=== PATIENT | male | born 1935 | race Caucasian/White ===

== ENCOUNTER 2017-12-06 16:33 | Inpatient (IN) | payer OTHER ==
[2017-12-06 17:24] LABS: BASOPHILS % (AUTO) 0.2 %; LYMPHOCYTES # (AUTO) 0.4 10^3/uL (1.5-3.5); MEAN CORPUSCULAR HEMOGLOBIN 30.2 pg (27.0-31.0); MEAN CORPUSCULAR HGB CONC 33.4 g/dL (32.0-36.0); MEAN CORPUSCULAR VOLUME 90.6 fL (80.0-94.0); MEAN PLATELET VOLUME 7.5 fL (7.4-11.4); MONOCYTES # (AUTO) 0.5 10^3/uL (0.0-1.0); MONOCYTES % (AUTO) 7.2 %; NEUTROPHILS # (AUTO) 6.3 10^3/uL (1.5-6.6); NEUTROPHILS % (AUTO) 87.6 %; PLT - PLATELET COUNT 128 10^3/uL (130-450); RED CELL DISTRIBUTION WIDTH 17.1 % (12.0-15.0); WHITE BLOOD COUNT 7.2 x10^3/uL (4.8-10.8)
[2017-12-06 17:31] LABS: ALBUMIN 4.3 g/dL (3.2-5.5); ALBUMIN/GLOBULIN RATIO 1.5 (1.0-2.2); ALKALINE PHOSPHATASE 96 IU/L (42-121); ALT ALANINE AMINOTRANSFERASE 167 IU/L (10-60); AST ASPARTATE AMINOTRANSFERASE 207 IU/L (10-42); BILIRUBIN,TOTAL 3.8 mg/dL (0.2-1.0); BUN - BLOOD UREA NITROGEN 15 mg/dL (6-20); CALCIUM 8.8 mg/dL (8.5-10.3); CARBON DIOXIDE - CO2 25 mmol/L (21-32); CHLORIDE 102 mmol/L (101-111); CREATININE 0.8 mg/dL (0.6-1.2); GFR - MDRD 93 (>89); GLUCOSE 123 mg/dL (70-100); LIPASE 20 U/L (22-51); SODIUM 134 mmol/L (135-145); TOTAL PROTEIN 7.1 g/dL (6.7-8.2)
--- NOTE | 2017-12-06 17:36 | ED Physician Documentation ---
PD HPI ABD PAIN - Stated complaint Stated Complaint: N/V - Chief complaint Chief Complaint: Abd Pain - History obtained from History obtained from: Patient - History of Present Illness Timing - onset: Other (This is an 82-year-old gentleman with history of atrial fibrillation on warfarin derivative. He is visiting from [place]. In May of last year he had choledocholithiasis it sounds like with an ERCP and had a repeat procedure in August. Last night he started developed fevers and chills and nausea but there is no abdominal pain.) Review of Systems Ten Systems: 10 systems reviewed and negative Constitutional: reports: Fever, Chills. denies: Sweats Cardiac: denies: Chest pain / pressure, Palpitations Respiratory: denies: Dyspnea, Cough GI: reports: Nausea. denies: Abdominal Pain, Vomiting, Diarrhea PD PAST MEDICAL HISTORY - Past Medical History Past Medical History: Yes Cardiovascular: Atrial fibrillation - Present Medications Home Medications: Ambulatory Orders Medication Instructions Recorded Confirmed Metoprolol Succinate [Toprol Xl] 50 mg PO BID 12/06/17 12/06/17 Phenrogamma 3 12/06/17 - Allergies Allergies/Adverse Reactions: Allergies Allergy/AdvReac Type Severity Reaction Status Date / Time No Known Drug Allergies Allergy Verified 12/06/17 16:44 - Living Situation Living Situation: reports: With family - Social History Does the pt smoke?: No Does the pt have substance abuse?: No - Family History Family history: reports: Non contributory PD ED PE NORMAL - Vitals Vital signs reviewed: Yes - General General: Alert and oriented X 3, No acute distress - HEENT HEENT: PERRL, EOMI - Neck Neck: Supple, no meningeal sign, No bony TTP - Cardiac Cardiac: Other (Irregularly irregular, no murmur) - Respiratory Respiratory: No respiratory distress, Clear bilaterally - Abdomen Abdomen: Normal bowel sounds, Soft, Non tender - Derm Derm: Normal color, Warm and dry - Extremities Extremities: No edema, No calf tenderness / cord - Neuro Neuro: Alert and oriented X 3, Normal speech - Psych Psych: Normal mood, Normal affect Results - Vitals Vitals: Vital Signs - 24 hr 12/06/17 12/06/17 16:37 19:07 Temperature 37.7 C H Heart Rate 116 H 110 H Respiratory 22 15 Rate Blood Pressure 124/87 H 110/70 O2 Saturation 97 96 Oxygen O2 Source Room air - Labs Labs: Laboratory Tests 12/06/17 12/06/17 12/06/17 17:08 17:08 17:08 WBC 7.2 RBC 4.30 L Hgb 13.0 L Hct 39.0 L MCV 90.6 MCH 30.2 MCHC 33.4 RDW 17.1 H Plt Count 128 L MPV 7.5 Neut # 6.3 Lymph # 0.4 L [place] # 0.5 Eos # 0.0 Baso # 0.0 Absolute Nucleated RBC 0.00 Nucleated RBC % 0.0 PT INR Sodium 134 L Potassium 4.3 Chloride 102 Carbon Dioxide 25 Anion Gap 7.0 BUN 15 Creatinine 0.8 Estimated GFR (MDRD) 93 Glucose 123 H Lactic Acid 1.2 Calcium 8.8 Total Bilirubin 3.8 H AST 207 H ALT 167 H Alkaline Phosphatase 96 Total Protein 7.1 Albumin 4.3 Globulin 2.8 Albumin/Globulin Ratio 1.5 Lipase 20 L Ethyl Alcohol < 5.0 12/06/17 17:08 WBC RBC Hgb Hct MCV MCH MCHC RDW Plt Count MPV Neut # Lymph # [place] # Eos # Baso # Absolute Nucleated RBC Nucleated RBC % PT 30.0 H INR 2.8 H Sodium Potassium Chloride Carbon Dioxide Anion Gap BUN Creatinine Estimated GFR (MDRD) Glucose Lactic Acid Calcium Total Bilirubin AST ALT Alkaline Phosphatase Total Protein Albumin Globulin Albumin/Globulin Ratio Lipase Ethyl Alcohol - Rads (name of study) RUQ sono Radiology: EMP read contemporaneously (Nonmobile 3.2 cm gallstone without evidence of cholecystitis, extrahepatic bile duct dilatation no obvious choledocholithiasis.) PD MEDICAL DECISION MAKING - ED course ED course: 82-year-old gentleman with known gallstones presents with nausea and low-grade fevers but no right upper quadrant pain or tenderness. His liver enzymes are up and there is no obvious choledocholithiasis on ultrasound. Case discussed by phone with Dr. Gramajo who feels like he can be safely managed here if we can get an MRCP tomorrow which I did confirm with the customs house broker we can we put him on Unasyn and I spoke with Dr. Gallegos for admission at 8:02 PM. Departure - Departure Disposition: 66 [facility] DC/Xfer Clinical Impression: Adequate anticoagulation on anticoagulant therapy, Ascending cholangitis Condition: Stable Discharge Date/Time: 12/06/17 20:44
[2017-12-06 17:58] LABS: INR 2.8 (0.8-1.2)
[2017-12-06] MEDS ORDERED: AMPICILLIN/SULBACTAM 3 GM in SODIUM CHLORIDE 0.9% MINIBAG 100 ML IV STA (19:03)
--- NOTE | 2017-12-06 19:37 | Ultrasound Report ---
EXAM: ABDOMEN ULTRASOUND LIMITED, RUQ EXAM DATE: 12/06/2017 07:12 PM. CLINICAL HISTORY: Fevers, H/O choledocholithiasis. COMPARISON: None. TECHNIQUE: Real-time scanning was performed with static images obtained. FINDINGS: Liver: Normal in size and echotexture. 16.5 cm. Main portal vein flow: Hepatopetal. Gallbladder: There is a non-mobile 3.2 x 1.5 x 2.4 cm stone with adjacent sludge within the gallbladd er. Biliary System: CBD measures 13 mm. The lower common bile duct is not visualized. Other: None. IMPRESSION: 1. Non-mobile 3.2 cm gallstone. No evidence of acute cholecystitis. 2. Extrahepatic bile duct dilatation. The lower common bile duct is obscured by bowel gas. Clinical c orrelation recommended to exclude cholestasis. YULI Referring Provider Line: [phone] SITE ID: [id number]
--- NOTE | 2017-12-06 19:37 | Ultrasound Preliminary Report ---
Exam: US ABDOMEN LIMITED IMPRESSION: 1. Non-mobile 3.2 cm gallstone. No evidence of acute cholecystitis. 2. Extrahepatic bile duct dilatation. The lower common bile duct is obscured by bowel gas. Clinical c orrelation recommended to exclude cholestasis. [facility] SITE ID: [id number]
[2017-12-06] MEDS ORDERED: ONDANSETRON 4 MG/2 ML VIAL IVP PRN (20:35)
[2017-12-06] MEDS ORDERED: HYDROmorphone 1 MG/ML CARPUJECT IVP PRN (20:35)
[2017-12-06] MEDS: METOPROLOL SUCCINATE 50 MG TABLET PO SCH (22:12)
[2017-12-06] MEDS: PANTOPRAZOLE 40 MG VIAL IVP SCH (22:27)
[2017-12-06] MEDS: D5NS W/20 MEQ KCL 1,000 ML IV SCH (22:27)
[2017-12-07] MEDS ORDERED: AMPICILLIN/SULBACTAM 3 GM in SODIUM CHLORIDE 0.9% MINIBAG 100 ML IV SCH ×2 (03:00→09:27)
--- NOTE | 2017-12-07 03:16 | HISTORY & PHYSICAL EXAMINATION ---
DATE OF SERVICE: 12/06/2017 Physician: Freida Best MD HISTORY OF PRESENT ILLNESS: This is an 82-year-old, white male who lives in [place] and is visiting his daughter on [facility]. He speaks Polish moderately well, and the daughter and other family members are at the bedside for interpretation. The patient has a history of chronic atrial fibrillation for about 10 years, for which he is on metoprolol and the version of Coumadin. He otherwise has a negative past medical history , except for having a gallstone that required an ERCP in the fall of 2016 and then again in August of this year. He has then had improvement in his status and was able to travel from [facility] to the [place] for this visit. He has not been keeping to a low-fat diet however , and this morning developed a fever and chills, as well as nausea, vomited once but had no abdominal pain. With this, he presented to the emergency room and was found to have low-grade fever and a heart rate of 110, and is being admitted for cholangitis. The patient also has a history of chronic sudden intermittent vomiting from "phlegm getting stuck that he cannot swallow. " The gastroenterologists that have seen him for his ERCP are not aware of this other symptom of nausea, he states. Since being admitted, the nausea has resolved completely after he vomited once in the late afternoon. He denies any pulmonary symptoms. He denies any diarrhea. There is no new medication use. PAST MEDICAL HISTORY: Chronic atrial fibrillation for the past 10 years, for which he takes metoprolol and takes the version of Coumadin. ERCP for gallstones twice over the past few months. MEDICATIONS 1. Toprol-XL 50 mg b.i.d. 2. Coumadin, unknown dose. ALLERGIES: NONE. SOCIAL HISTORY: The patient is a nonsmoker, drinks social alcohol. uses no illicit drugs. He is retired. REVIEW OF SYSTEMS: The patient is very active, exercises on an exercise bike 1 hour every day. A comprehensive review of systems was performed and the pertinent positives are as above. FAMILY HISTORY: No inherited diseases. PHYSICAL EXAMINATION GENERAL: White male, in no distress. VITAL SIGNS: Blood pressure 124/87 but most recently 99/79, heart rate 116 in atrial fibrillation, low grade temperature of 37.7, room air saturation 97%. HEENT: Unremarkable. Moist oral mucosa is present. NECK: No JVD or carotid bruits. CHEST: Clear. HEART: Sounds normal. ABDOMEN: Soft, nontender. No organomegaly. No Muro sign. Decreased bowel sounds. EXTREMITIES: No clubbing, cyanosis or edema. No calf tenderness. NEUROLOGIC: Intact. LABORATORIES: Sodium 134, otherwise normal electrolytes, normal BUN and creatinine. Lactic acid 1.2, bilirubin 3.8, AST 207, ALT 167. INR 2.8, consistent with his Coumadin use. White blood count normal at 7.2 with a normal differential, hemoglobin 13, platelet count low at 128. Toxicology showed no alcohol present. No EKG was done. Abdomen ultrasound showed a nonmobile 3.2 cm gallstone, but no acute cholecystitis. There is extrahepatic bile duct dilatation. IMPRESSION/DIAGNOSES 1. Probable ascending cholangitis. 2. Gallstone. 3. Hyperbilirubinemia and elevated liver tests suggest intermittent hepatobilliary obstruction. 4. Chronic atrial fibrillation, on Coumadin. 5. Thrombocytopenia. PLAN 1. Admit the patient. Begin IV hydration. Begin bowel rest, keep n.p.o. except medications and then advanced to a clear liquid diet as tolerated. Surgical consult for possible management of the gallstone. MRCP to evaluate this area carefully with imaging. Begin empiric antibiotics to cover gram negatives and anaerobes, Unasyn was started in the ER and will be continued 3 g IV every 6 hours. Blood cultures have been drawn in the emergency room and await these. Continue the patient's beta armani for Afib rate control. His Coumadin will be held in preparation for possible surgical procedure and when the INR is under 2.0, bridging could be done with Lovenox. 2. DVT prophylaxis: SCDs, in addition to currently being therapeutic on Coumadin. 3. Code status: FULL CODE. 4. Attestation: The patient is expected to be discharged or transferred to another facility within 96 hours: Yes. TD: 12/07/2017 03:15 MANFRED
[2017-12-07] MEDS: SODIUM CHLORIDE FLUSH 0.9% 10 ML SYRINGE IVP SCH ×3 (04:01→16:05)
[2017-12-07 05:31] LABS: ALBUMIN 3.5 g/dL (3.2-5.5); ALBUMIN/GLOBULIN RATIO 1.5 (1.0-2.2); BILIRUBIN,TOTAL 3.4 mg/dL (0.2-1.0); CALCIUM 8.1 mg/dL (8.5-10.3); CREATININE 0.7 mg/dL (0.6-1.2); MAGNESIUM 2.1 mg/dL (1.7-2.8); TOTAL PROTEIN 5.9 g/dL (6.7-8.2)
[2017-12-07 05:39] LABS: BASOPHILS % (AUTO) 0.3 %; EOSINOPHILS % (AUTO) 0.4 %; HGB - HEMOGLOBIN 11.7 g/dL (14.0-18.0); LYMPHOCYTES # (AUTO) 0.6 10^3/uL (1.5-3.5); LYMPHOCYTES % (AUTO) 11.8 %; MEAN CORPUSCULAR HEMOGLOBIN 29.6 pg (27.0-31.0); MEAN CORPUSCULAR HGB CONC 32.7 g/dL (32.0-36.0); MEAN CORPUSCULAR VOLUME 90.6 fL (80.0-94.0); MEAN PLATELET VOLUME 7.9 fL (7.4-11.4); MONOCYTES # (AUTO) 0.5 10^3/uL (0.0-1.0); MONOCYTES % (AUTO) 10.3 %; NEUTROPHILS # (AUTO) 3.8 10^3/uL (1.5-6.6); NEUTROPHILS % (AUTO) 77.2 %; PLT - PLATELET COUNT 118 10^3/uL (130-450); RED BLOOD COUNT 3.95 10^6/uL (4.70-6.10); RED CELL DISTRIBUTION WIDTH 17.2 % (12.0-15.0); WHITE BLOOD COUNT 4.9 x10^3/uL (4.8-10.8)
[2017-12-07] MEDS: SODIUM CHLORIDE FLUSH 0.9% 10 ML SYRINGE IVP PRN ×2 (06:55→16:06)
[2017-12-07] MEDS: PANTOPRAZOLE 40 MG VIAL IVP SCH ×2 (06:55→16:05)
[2017-12-07] MEDS: METOPROLOL SUCCINATE 50 MG TABLET PO SCH (08:59)
[2017-12-07] MEDS ORDERED: POLYETHYLENE GLYCOL 3350 17 GM PACKET PO SCH (09:00)
[2017-12-07] MEDS: D5NS W/20 MEQ KCL 1,000 ML IV SCH (09:00)
[2017-12-07] MEDS: AMPICILLIN/SULBACTAM 3 GM in SODIUM CHLORIDE 0.9% MINIBAG 100 ML IV SCH ×2 (09:54→16:05)
--- NOTE | 2017-12-07 15:24 | MRI Preliminary Report ---
Exam: MRI MRCP W/O IMPRESSION: 1. Choledocholithiasis with mild to moderate upstream biliary ductal dilatation. No evidence of ascen ding cholangitis, though exam is limited in sensitivity due to lack of intravenous contrast and this into T2 not be excluded completely by any imaging. Recommend GI consultation and consideration of ERC P. 2. Moderately distended gallbladder with cholelithiasis, but no MR evidence of acute cholecystitis. 3. Small hiatal hernia. 4. Additional findings as above. RADI SITE ID: [id number]
--- NOTE | 2017-12-07 15:31 | MRI Report ---
EXAM: MR ABDOMEN WITHOUT CONTRAST (MR CHOLANGIOPANCREATOGRAPHY) EXAM DATE: 12/07/2017 12:31 PM. CLINICAL HISTORY: Acute cholecystitis vs ascending cholangitis. COMPARISON: Right upper quadrant ultrasound 12/06/2017. TECHNIQUE: Multiplanar breath-hold T1 and T2 sequences obtained through the abdomen on an MR scanner. In and an opposed phase imaging also performed. Dedicated 2D and 3D MRCP sequences obtained through the biliary and pancreatic ducts. No intravenous contrast given. FINDINGS: Lung Bases: The lung bases are clear. There is a small hiatal hernia. Liver: The liver has normal size, morphology and signal. No evidence of mass. Bile ducts: There is mild intrahepatic biliary ductal dilatation without evidence of a stricture or f illing defect. There is mild to moderate prominence of the extrahepatic bile duct, the common hepatic duct measuring up to 13 mm at the hilum and the common bile duct tapering in the pancreatic head, th ough still mildly enlarged measuring 9 mm distally. No evidence of a stricture of the common hepatic duct or common bile duct. -Within the distal common bile duct near the dura there is at least one filling defect most suggestiv e of a calculus measuring up to 9 mm (series 1001 image 3, also well appreciated on series 901 image 17) possible additional smaller stones also present within the distal common duct. Gallbladder: The gallbladder is moderately distended with calculi layering in the fundus, the largest measuring 28 mm. No evidence of a obstructive calculus at the gallbladder neck or cystic duct. No ev idence of wall thickening and no significant adjacent fat stranding, though fat saturation is subopti mal on series 801. Pancreas: The pancreas is mildly atrophic, though no evidence of a pancreatic mass or adjacent inflam mation. The pancreatic duct measures 1-2 mm in diameter and appears normal with no stone or stricture . Spleen: The spleen appears normal. Kidneys and Adrenals: The kidneys appear normal with no mass or hydronephrosis. There are presumed cy sts in the kidneys with T2 hyperintensities noted in both upper pole kidneys, though incompletely trupti luated by this noncontrast exam. The adrenals appear normal. Bowel: The small bowel and colon are unremarkable without inflammation or obstruction. Retroperitoneum: The retroperitoneal structures appear normal with no mass or lymphadenopathy. IMPRESSION: 1. Choledocholithiasis with mild to moderate upstream biliary ductal dilatation. No evidence of ascen ding cholangitis, though exam is limited in sensitivity due to lack of intravenous contrast and this entity cannot be excluded completely by any imaging. Recommend GI consultation and consideration of E WAISTBAND SETTER LOCKSTITCH. 2. Moderately distended gallbladder with cholelithiasis, but no MR evidence of acute cholecystitis. 3. Small hiatal hernia. 4. Additional findings as above. [facility] Referring Provider Line: [phone] SITE ID: [id number]
--- NOTE | 2017-12-07 16:06 | Discharge Plan ---
Discharge Plan Disposition: 01 Home, Self Care Condition: Good Prescriptions: Ursodiol 300 mg PO BID #20 capsule Diet: Regular Activity Restrictions: Activity as Tolerated Shower Restrictions: No Driving Restrictions: No Weight Bearing: Full Weight Additional Instructions or Follow Up instructions: You were admitted for cholecystitis and treated for your symptoms and given both IV fluids and antibiotics. You met with general surgery who recommends an ERCP followed by surgery, which should be completed as soon as able. Antibiotics that may or may not be beneficial will influence the blood thinners , so these will not be prescribed. These are only indicated if an acute infection is suspected, which is not thought to be the case. A medication called Ursodiol is prescribed and sent to your pharmacy of choice, which acts to break down gallstones. The only diet restriction is to avoid fatty foods. You will be provided a disk of all imaging that will be helpful for the surgeon in [place]. Please seek medical attention as discussed. Thank you, and best wishes! No Smoking: If you smoke, Please STOP! Call for help.
--- NOTE | 2017-12-07 16:24 | DISCHARGE SUMMARY ---
"Discharge Summary Admit Date: 12/06/17 Discharge Date: 12/07/17 Discharging Provider: LUIS ALBERTO [place] Primary Care Provider: none Code Status: Attempt Resuscitation Condition at Discharge: Good Discharge Disposition: 01 Home, Self Care - DIAGNOSES Admission Diagnoses: Ascending cholangitis (K83.0) Gallstone (K80.20) Hyperbilirubinemia (E80.6) Chronic a-fib (I48.2) Thrombocytopenia (D69.6) Discharge Diagnoses with Status of Each Condition: Ascending cholangitis (K83.0)-ongoing, treatment is surgery, of which patient intends to fly back to [place] to have this performed. Gallstone (K80.20)- chronic, stable, and not causing worsening illness. Hyperbilirubinemia (E80.6)- improved and the patient did not have pain upon discharge. Chronic a-fib (I48.2)-chronic, stable. Thrombocytopenia (D69.6)- chronic, stable. - HPI History of Present Illness: Eduardo Son is a Sinhala speaking 82-year old male with a past medical history of atrial fibrillation, ERCP, gallstones, and chronic vision loss. The patient lives in [facility] and is visiting his daughter on [facility]. His most recent gallstone attack was this past August in which an ERCP was completed to remove a gallstone. He has had no further issues and was cleared for travel. On the morning of this admission the patient started to have fever, chills, nausea, vomiting without abdominal pain. Once in the ED the patient was found to be tachycardic with a heart rate of 110, low grade fever, and mild nausea without vomiting. General surgery, Dr. Gramajo was consulted for a possible ERCP verses surgery. He will be admitted to inpatient for symptom management and further work up of his gall stones. - CONSULTS | PROCEDURES Consultations: General surgeryDr. Gramajo - HOSPITAL COURSE Hospital Course: The patient was treated for his acute pain and presenting symptoms in the ED that continued when arriving on the nursing unit. General surgery was immediately consulted who recommended an MRCP, which was completed. The patient was given an IV antibiotic, Unasyn every 6 hours, IV fluids of D5NS with 20Kcl, dilaudid IV for pain management, and a PPI. Blood pressure readings ranged from 99/79- 118/82. The patient's INR was 2.8, and Coumadin was not given on the evening of admission. The patient had a temp max of 37.7 orally, which resolved. The patient's WBC count reached 7.2, and was down to 4.9. Liver labs were elevated with an AST of 207 that normalized to 41 and ALT of 167 that normalized to 63, biliruben was elevated at 3.8, that was down to 2.3. The patient's alcohol level was normal. A long discussion took place prior to discharge in regards to surgical options and in the end, the patient and his family chose to go on their way, fly back to [facility] and undergo surgery at a later date. The patient was prescribed a medication called Ursodiol to be taken to help prevent his gallbladder attacks. His home medications of Metoprolol and Coumadin were resumed upon discharge. The patient was ambulatory and did not require oxygen or pain medication upon discharge and was considered to be in stable condition. - ALLERGIES Allergies/Adverse Reactions: Allergies Allergy/AdvReac Type Severity Reaction Status Date / Time No Known Drug Allergies Allergy Verified 12/06/17 16:44 - MEDICATIONS Home Medications: Ambulatory Orders Medication Instructions Recorded Confirmed Metoprolol Succinate [Toprol Xl] 47.5 mg PO BID 12/06/17 12/07/17 Ursodiol 300 mg PO BID #20 capsule 12/07/17 Warfarin Sodium 1.5 mg PO Q2D 12/07/17 12/07/17 Warfarin [Coumadin] 3 mg PO Q2D 12/07/17 12/07/17 - PHYSICAL EXAM AT DISCHARGE General Appearance: positive: No acute distress, Alert Eyes Bilateral: positive: Normal inspection, PERRL ENT: positive: ENT inspection nml, Pharynx nml, No signs of dehydration Neck: positive: Nml inspection, Thyroid nml, No JVD, Trachea midline Respiratory: positive: Chest non-tender, No respiratory distress, Breath sounds nml Cardiovascular: positive: Regular rate & rhythm, No gallop, Systolic murmur, Decreased pulse(s) Peripheral Pulses: positive: 2+ Abdomen: positive: Tenderness, Guarding, Rebound, Abnml bowel sounds Back: positive: Nml inspection Skin: positive: No rash, Warm, Dry Extremities: positive: Non-tender, Full ROM, Pedal edema (mild-BLE) Neurologic/Psychiatric: positive: Oriented x3, Motor nml, Sensation nml, Weakness, Sensory loss, Depressed mood/affect, Other (Sinhala speaking.) Reflexes: Bicep (R): 2+, Bicep (L): 2+ - LABS Result Diagrams: 12/07/17 05:05 12/07/17 05:05 - DIAGNOSTIC IMAGING Diagnostic Imaging Results: Final report reviewed Diagnostic Imaging Results Comments: EXAM: ABDOMEN ULTRASOUND LIMITED, RUQ EXAM DATE: 12/06/2017 07:12 PM. CLINICAL HISTORY: Fevers, H/O choledocholithiasis. COMPARISON: None. TECHNIQUE: Real-time scanning was performed with static images obtained. FINDINGS: Liver: Normal in size and echotexture. 16.5 cm. Main portal vein flow : Hepatopetal. Gallbladder: There is a non-mobile 3.2 x 1.5 x 2.4 cm stone with adjacent sludge within the gallbladder. Biliary System: CBD measures 13 mm. The lower common bile duct is not visualized. Other: None. IMPRESSION: 1. Non-mobile 3.2 cm gallstone. No evidence of acute cholecystitis. 2. Extrahepatic bile duct dilatation. The lower common bile duct is obscured by bowel gas. Clinical correlation recommended to exclude cholestasis. EXAM: MR ABDOMEN WITHOUT CONTRAST (MR CHOLANGIOPANCREATOGRAPHY) EXAM DATE: 12/07/2017 12:31 PM. CLINICAL HISTORY: Acute cholecystitis vs ascending cholangitis. COMPARISON: Right upper quadrant ultrasound 12/06/2017. TECHNIQUE: Multiplanar breath-hold T1 and T2 sequences obtained through the abdomen on an MR scanner. In and an opposed phase imaging also performed. Dedicated 2D and 3D MRCP sequences obtained through the biliary and pancreatic ducts. No intravenous contrast given. FINDINGS: Lung Bases: The lung bases are clear. There is a small hiatal hernia. Liver: The liver has normal size, morphology and signal. No evidence of mass. Bile ducts: There is mild intrahepatic biliary ductal dilatation without evidence of a stricture or filling defect. There is mild to moderate prominence of the extrahepatic bile duct, the common hepatic duct measuring up to 13 mm at the hilum and the common bile duct tapering in the pancreatic head, though still mildly enlarged measuring 9 mm distally. No evidence of a stricture of the common hepatic duct or common bile duct. -Within the distal common bile duct near the dura there is at least one filling defect most suggestive of a calculus measuring up to 9 mm (series 1001 image 3, also well appreciated on series 901 image 17) possible additional smaller stones also present within the distal common duct. Gallbladder: The gallbladder is moderately distended with calculi layering in the fundus, the largest measuring 28 mm. No evidence of a obstructive calculus at the gallbladder neck or cystic duct. No evidence of wall thickening and no significant adjacent fat stranding, though fat saturation is suboptimal on series 801. Pancreas: The pancreas is mildly atrophic, though no evidence of a pancreatic mass or adjacent inflammation. The pancreatic duct measures 1-2 mm in diameter and appears normal with no stone or stricture. Spleen: The spleen appears normal. Kidneys and Adrenals: The kidneys appear normal with no mass or hydronephrosis. There are presumed cysts in the kidneys with T2 hyperintensities noted in both upper pole kidneys, though incompletely evaluated by this noncontrast exam. The adrenals appear normal. Bowel: The small bowel and colon are unremarkable without inflammation or obstruction. Retroperitoneum: The retroperitoneal structures appear normal with no mass or lymphadenopathy. IMPRESSION: 1. Choledocholithiasis with mild to moderate upstream biliary ductal dilatation. No evidence of ascending cholangitis, though exam is limited in sensitivity due to lack of intravenous contrast and this entity cannot be excluded completely by any imaging. Recommend GI consultation and consideration of ERCP. 2. Moderately distended gallbladder with cholelithiasis, but no MR evidence of acute cholecystitis. 3. Small hiatal hernia. 4. Additional findings as above. - FOLLOW UP Follow Up: Disposition: 01 Home, Self Care Condition: Good Prescriptions: Ursodiol 300 mg PO BID #20 capsule Diet: Regular Activity Restrictions: Activity as Tolerated Shower Restrictions: No Driving Restrictions: No Weight Bearing: Full Weight Additional Instructions or Follow Up instructions: You were admitted for cholecystitis and treated for your symptoms and given both IV fluids and antibiotics. You met with general surgery who recommends an ERCP followed by surgery, which should be completed as soon as able. Antibiotics that may or may not be beneficial will influence the blood thinners , so these will not be prescribed. These are only indicated if an acute infection is suspected, which is not thought to be the case. A medication called Ursodiol is prescribed and sent to your pharmacy of choice, which acts to break down gallstones. The only diet restriction is to avoid fatty foods. You will be provided a disk of all imaging that will be helpful for the surgeon in [place]. Please seek medical attention as discussed. - TIME SPENT Time Spent in Discharge (Minutes): 60"
[2017-12-07 17:56] VITALS: BP 112/86
--- NOTE | 2017-12-07 19:37 | CONSULTATION NOTE ---
Referring Provider Name of Referring Provider:: Dr. Jose Luis Thomason, Dr. Freida Best Consult Date: 12/07/17 Chief Complaint - Chief Complaint Chief Complaint: RUQ pain with history of cholelithiasis and choledocholithiasis s/p ERCP History of Present Illness - Admitted From Admitted From:: Emergency Department [facility] - History Obtained From Records Reviewed: Yes History obtained from: Patient and family Exam Limitations: Primarily Indonesian speaker but had multiple translators - History of Present Illness HPI Comment/Other: I was called on the evening of 06 December 2017 to evaluate this patient primarily Indonesian speaking very pleasant 82-year-old gentleman for right upper quadrant pain. Dr. Thomason called me he made it clear that the patient was on blood thinners and that he had had a previous ERCP for choledocholithiasis. Additionally, it was clear that he had not had his gallbladder out. At that time we discussed the need for an MRCP and depending on the findings of the MRCP we would be able to determine what type of surgery should be done and the timing of the surgery. If the patient were to be operated on his anticoagulation would need to be stopped and reversed. As such, he was admitted to the medical service and I was consulted formally. I saw the patient today after he had had his MRCP and obtained his history in detail. His symptoms started in May of last year with similar right upper quadrant pain. At that time he was admitted to the hospital and had an ERCP done but he states the surgeon wanted to defer surgery due to the inflammation that was present in his right upper quadrant. Once the inflammation had abated the patient was relatively asymptomatic and the surgeon deferred taking out his gallbladder. The patient has been on [facility] for the past 3 weeks visiting with his daughter and son-in-law and is planning on returning this Saturday to [place]. He [place] in [place] . Please note that his and his daughter were present for all of our visit and his son-in-law came in towards the end. Today, he is relatively asymptomatic with none of the pain that brought him into the emergency room. He has lost approximately 6 kg over the past year with changing his diet and avoiding sweets. The pain was described as sharp and piercing. There was no significant nausea or vomiting. I went over the pathophysiology of gallstones as well as the symptomatology of gallstones explaining that the majority of gallstones were asymptomatic but once they become symptomatic surgery is indicated. I went over the most common symptoms of gallstones and wrote them out on a piece of paper which I then handed to him. Additionally, I sherley out the anatomy of the right upper quadrant and explained how the biliary system normally works as well as how it works with stones present. I explained how the stones because symptoms and pain. I explained how stones cause increases in the transaminases as well as bilirubin. I also signed on to the PACS system and showed him his MRCP. I clearly showed his family as well as him his cholelithiasis as well as his choledocholithiasis. At this point time his actually showed me her extraordinarily long gallbladder incision and explained that her surgery had been performed 25 years ago. I explained that now this is not her preferred way to perform the operation we in fact do it laparoscopically and I sherley out exactly what this meant. I explained that instead of a 20 inch incision the standard laparoscopic patient has a 2 cm incision in the umbilicus as well as three 5 mm incisions in the right upper quadrant and epigastrium. I went on to explain that due to his blood thinners (which were variant of warfarin) that I would need to stop and reverse his anticoagulation if I were to operate. The proposed operation would be a laparoscopic cholecystectomy, likely intraoperative cholangiography, possible common bile duct exploration, possible open cholecystectomy. I explained that we do not have ERCP available at this hospital. I explained that if the operation went as expected I would have him home this evening. The family as well as the patient then asked me how uncomfortable or would be dangerous for him to fly on Saturday. I explained that I did not think it would be dangerous but that he would be quite uncomfortable. He then asked me whether or not the operation could be performed in [place]. I explained that of course it could. I went on to explain that I thought his surgeon in [place] had made an error in judgment when he opted not to take out his gallbladder following the ERCP. I explained [place] once an ERCP is done for common bile duct stones the cholecystectomy follows 24-48 hours later. I explained that the gallbladder is the "factory" that produces the gallstones and if the gallbladder is not removed it is likely that he will persistently have common bile duct stones as well as biliary colic or acute cholecystitis. Other more dangerous options included pancreatitis and ascending cholangitis. All of this was explained to the patient and his family in detail. I went on to explain that gallstones and common bile duct stones have a waxing and waning quality with regards to pain and that as rule they do not mandate emergent operations. If he stays on a fat-free diet it is likely that he will be able to get to [place] without any significant difficulties but at that time it was my absolutely strong and adamant recommendation that he have his gallbladder removed. I explained that he already proved that he cannot keep his gallbladder. I went on to state that despite his 82 years of age he is exceedingly healthy. He exercises up to 1 hour each and every day and he has no significant comorbidities that limit his lifespan. (He does have atrial fibrillation) I had drawn how a laparoscopic surgeon is also done and I handed him all my drawings to take home. I explained that as long as this operation is done relatively soon and I artificially sent 30 days from today he should do fine. Family asked if they could discuss this and decide what they wish to do and then get back to me and I explained that absolutely they could. I explained that I did not wish for them to feel that they were pressured into an operation. I did not perform a physical examination on this gentleman as if he decides to have it done in [place] there is nothing on my physical examination that would change my opinion. Please note that this discussion lasted 2 hours. History - Past Medical History Cardiovascular: reports: Atrial fibrillation Respiratory: reports: None Neuro: reports: Other Endocrine/Autoimmune: reports: None GI: reports: Other : reports: None HEENT: reports: Chronic vision loss Psych: reports: None Musculoskeletal: reports: None Derm: reports: None MRSA Hx?: No Other Past Medical History: Pt reports mild sensory loss in bilateral feet which he reports is improving with exercise; pt reports history of vomiting after eating sour foods, white meat chicken, or carrots - Family & Social History Living Situation: With family Meds/Allgy - Home Medications Home Medications: Ambulatory Orders Medication Instructions Recorded Confirmed Metoprolol Succinate [Toprol Xl] 47.5 mg PO BID 12/06/17 12/07/17 Ursodiol 300 mg PO BID #20 capsule 12/07/17 Warfarin Sodium 1.5 mg PO Q2D 12/07/17 12/07/17 Warfarin [Coumadin] 3 mg PO Q2D 12/07/17 12/07/17 - Allergies Allergies/Adverse Reactions: Allergies Allergy/AdvReac Type Severity Reaction Status Date / Time No Known Drug Allergies Allergy Verified 12/06/17 16:44 Review of Systems - Constitutional Constitutional: reports: Weight loss (6 kg over the past year with the patient working on it.). denies: Fatigue, Fever, Chills, Malaise, Weakness, Poor appetite, Diaphoresis, Night sweats - Eyes Eyes: denies: Pain, Irritation, Blurred vision, Spots in vision, Dipolpia - Ears, Nose & Throat Ears, Nose & Throat: denies: Ear pain, Hearing loss - Cardiovascular Cariovascular: reports: Irregular heart rate. denies: Chest pain, Lightheadedness, Syncope, Exertional dyspnea - Respiratory Respiratory: denies: Cough, Sputum production, Snoring - Gastrointestinal Gastrointestinal: reports: Abdominal pain (None today but significant yesterday. ). denies: Abdominal distention, Constipation, Diarrhea, Change in bowel habits , Rectal bleeding, Black stools, Bloody stools, Nausea, Vomiting, Coffee grounds emesis - Genitourinary Genitourinary: denies: Dysuria, Frequency, Urgency - Musculoskeletal Musculoskeletal: denies: Muscle pain, Back pain, Muscle aches - Integumentary Integumentary: denies: Rash - Neurological Neurological: denies: General weakness, Focal weakness - Psychiatric Psychiatric: denies: Depression, Anxiety, Suicidal, Delusions, Hallucinations, Homicidal - Endocrine Endocrine: denies: Polyuria, Polydypsia, Polyphagia - Hematologic/Lymphatic Hematologic/Lymphatic: denies: Anemia, Bruising Exam - Vital Signs Reviewed Vital Signs: Yes Vital Signs: Vital Signs x48h Temp Pulse Pulse Resp BP BP Pulse Ox 12/07/17 17:35 36.5 C 55 L 18 112/86 H 97 12/07/17 15:37 36.7 C 87 18 118/82 H 97 - Physical Exam General Appearance: positive: No acute distress (Patient is comfortable sitting in bed in room 2309. Again no detailed physical examination was done.) Conclusion/Plan - Diagnosis Diagnosis: Choledocholithiasis and cholelithiasis in an 82-year-old Indonesian male who has had an ERCP but not the required cholecystectomy and who is stated travel back to [place] this December 10 - Plan Plan: After the extensive discussion stated above the patient is opted to have the surgery done in [place] and I think that this should be perfectly safe. The risks to him or small and I explained that in order to minimize the risks he should be on a fat-free diet until he has the surgery. Following his surgery I explained that usually I tell my patients that they can eat whatever they want, shower, hot tub, swimming, walk, and climb stairs. I will leave the specific instructions up to his surgeon in [place]. I wished him well as well as a safe trip home. I explained that it was my distinct pleasure and honor to meet him and speak with him. - Lab Results Lab results reviewed: Yes Fish Bones: 12/07/17 05:05 12/07/17 05:05 - Diagnostic Imaging Results Diagnostic Imaging Results: positive: Prelim report reviewed, Read independently
== END 2017-12-07 17:40 | disposition home or self-care (01) | DRG 445 ==
LOC: ED 16:33 → MS3 20:51
PROVIDERS: ADMIT Internal Medicine; ATTEND Nurse Practitioner
DX: K80.30 Calculus of bile duct with cholangitis, unspecified, without obstruction (principal); R17 Unspecified jaundice; I48.2 Chronic atrial fibrillation; R79.89 Other specified abnormal findings of blood chemistry; D69.6 Thrombocytopenia, unspecified; Z79.01 Long term (current) use of anticoagulants; Z79.899 Other long term (current) drug therapy
CPT/HCPCS: 36415; 74181; 76705; 80053; 80320; 83605; 83690; 83735; 85025; 85610; 87040; 96365; 99283; 99284

== ENCOUNTER 2017-12-09 12:48 | Emergency (ER) | payer OTHER ==
[2017-12-09 13:06] VITALS: BP 136/97
[2017-12-09 14:15] LABS: BASOPHILS % (AUTO) 0.5 %; EOSINOPHILS % (AUTO) 0.4 %; HGB - HEMOGLOBIN 12.9 g/dL (14.0-18.0); LYMPHOCYTES # (AUTO) 0.9 10^3/uL (1.5-3.5); LYMPHOCYTES % (AUTO) 19.3 %; MEAN CORPUSCULAR HEMOGLOBIN 30.7 pg (27.0-31.0); MEAN CORPUSCULAR HGB CONC 33.9 g/dL (32.0-36.0); MEAN CORPUSCULAR VOLUME 90.8 fL (80.0-94.0); MEAN PLATELET VOLUME 7.4 fL (7.4-11.4); MONOCYTES # (AUTO) 0.5 10^3/uL (0.0-1.0); MONOCYTES % (AUTO) 9.7 %; NEUTROPHILS # (AUTO) 3.4 10^3/uL (1.5-6.6); NEUTROPHILS % (AUTO) 70.1 %; PLT - PLATELET COUNT 139 10^3/uL (130-450); RED BLOOD COUNT 4.21 10^6/uL (4.70-6.10); WHITE BLOOD COUNT 4.9 x10^3/uL (4.8-10.8)
[2017-12-09 14:25] LABS: INR 3.1 (0.8-1.2); PT - PROTHROMBIN TIME 33.5 secs (9.9-12.6)
[2017-12-09 14:29] LABS: ALBUMIN/GLOBULIN RATIO 1.3 (1.0-2.2); BILIRUBIN,TOTAL 2.3 mg/dL (0.2-1.0); CALCIUM 8.9 mg/dL (8.5-10.3); CREATININE 0.9 mg/dL (0.6-1.2); TOTAL PROTEIN 7.2 g/dL (6.7-8.2)
--- NOTE | 2017-12-09 14:54 | ED Physician Documentation ---
History of Present Illness - Stated complaint Stated Complaint: LABS/FIT TO FLY - Chief complaint Chief Complaint: General - History obtained from History obtained from: Patient, Family - History of Present Illness Timing: How many weeks ago (1) Pain level max: 0 Pain level now: 0 Improved by: Nothing Worsened by: Nothing - Additonal information Additional information: Patient is an 82-year-old Nepali gentleman who presents to the emergency department requesting to have his laboratory tests rechecked, recently was admitted to the hospital for ascending cholangitis. Surgery was consulted and determined that he could have surgery when he returned home to [place] as this was his preference. Currently the patient is asymptomatic. No fevers. No abdominal pain. No jaundice. No vomiting. No diarrhea. He is also requesting a note to fly back to [place] as his doctor has requested this. Review of Systems Ten Systems: 10 systems reviewed and negative Constitutional: denies: Fever, Chills Ears: denies: Ear pain Cardiac: denies: Chest pain / pressure Respiratory: denies: Cough GI: denies: Abdominal Pain, Nausea, Vomiting, Diarrhea Skin: denies: Rash Musculoskeletal: denies: Neck pain, Back pain Neurologic: denies: Headache PD PAST MEDICAL HISTORY - Past Medical History Past Medical History: Yes Cardiovascular: Atrial fibrillation Respiratory: None Neuro: Other Endocrine/Autoimmune: None GI: Other : None HEENT: Chronic vision loss Psych: None Musculoskeletal: None Derm: None - Present Medications Home Medications: Ambulatory Orders Medication Instructions Recorded Confirmed Metoprolol Succinate [Toprol Xl] 47.5 mg PO BID 12/06/17 12/07/17 Ursodiol 300 mg PO BID #20 capsule 12/07/17 Warfarin Sodium 1.5 mg PO Q2D 12/07/17 12/07/17 Warfarin [Coumadin] 3 mg PO Q2D 12/07/17 12/07/17 - Allergies Allergies/Adverse Reactions: Allergies Allergy/AdvReac Type Severity Reaction Status Date / Time No Known Drug Allergies Allergy Verified 12/06/17 16:44 - Social History Does the pt smoke?: No Smoking Status: Never smoker Does the pt have substance abuse?: No PD ED PE NORMAL - Vitals Vital signs reviewed: Yes - General General: Alert and oriented X 3, No acute distress - HEENT HEENT: PERRL, Moist mucous membranes - Neck Neck: Supple, no meningeal sign - Cardiac Cardiac: RRR, Strong equal pulses - Respiratory Respiratory: No respiratory distress, Clear bilaterally - Abdomen Abdomen: Soft, Non tender, Non distended - Derm Derm: Warm and dry, Other (No jaundice) - Extremities Extremities: No edema - Neuro Neuro: Alert and oriented X 3 - Psych Psych: Normal mood, Normal affect Results - Vitals Vitals: Oxygen O2 Source Room air - Labs Labs: Laboratory Tests 12/09/17 12/09/17 12/09/17 14:11 14:11 14:11 WBC 4.9 RBC 4.21 L Hgb 12.9 L Hct 38.2 L MCV 90.8 MCH 30.7 MCHC 33.9 RDW 17.0 H Plt Count 139 MPV 7.4 Neut # 3.4 Lymph # 0.9 L [place] # 0.5 Eos # 0.0 Baso # 0.0 Absolute Nucleated RBC 0.00 Nucleated RBC % 0.0 PT 33.5 H INR 3.1 H Sodium 135 Potassium 4.1 Chloride 100 L Carbon Dioxide 28 Anion Gap 7.0 BUN 15 Creatinine 0.9 Estimated GFR (MDRD) 81 L Glucose 104 H Calcium 8.9 Total Bilirubin 2.3 H AST 41 ALT 63 H Alkaline Phosphatase 109 Total Protein 7.2 Albumin 4.0 Globulin 3.2 Albumin/Globulin Ratio 1.3 Lipase 24 PD MEDICAL DECISION MAKING - ED course Complexity details: reviewed old records, reviewed results, re-evaluated patient , considered differential, d/w patient, d/w family, d/w functional consultant ED course: Patient is an 82-year-old gentleman who presents to the emergency department requesting a repeat of his recent blood work and a note that is okay for him to fly back to [place]. Laboratory tests have actually improved. He is fully asymptomatic. No fevers. No abdominal pain. I discussed the case with Dr. Gramajo, who saw the patient in the hospital and he concurs that it is safe for the patient to fly. He came and spoke with the patient briefly in the emergency department as well. Patient and family counseled regarding signs and symptoms for which I believe and urgent re-evaluation would be necessary. Patient with good understanding of and agreement to plan and is comfortable going home at this time This document was made in part using voice recognition software. While efforts are made to proofread this document, sound alike and grammatical errors may occur. Departure - Departure Disposition: 01 Home, Self Care Clinical Impression: Biliary colic Condition: Good Instructions: ED Gallstone W Biliary Colic Follow-Up: your,doctor in 1 week [Other] Comments: Return if you worsen. Forms: Activity restrictions Discharge Date/Time: 12/09/17 15:22
== END 2017-12-09 15:22 | disposition home or self-care (01) ==
LOC: ED 12:48
DX: K80.50 Calculus of bile duct without cholangitis or cholecystitis without obstruction (principal); I48.91 Unspecified atrial fibrillation; Z79.01 Long term (current) use of anticoagulants
CPT/HCPCS: 36415; 80053; 83690; 85025; 85610; 99283; 99284